=== PATIENT | male | born 1975 | race African-American/Black ===

== ENCOUNTER 2021-10-06 06:13 | Emergency (ER) | payer SELFPAY ==
[~2021-10-06 06:13] MED LIST: AMOXICILLIN500 MG PO; BACTRIM DS TAB1 EACH PO; BACTROBAN OINT22 GM EXT; CELEBREX100 MG PO; PENVEE K 500 M500 MG PO
[2021-10-06 07:12] LABS: HEMOGLOBIN 16.1 gm/dl (14.0-17.5); RED BLOOD COUNT 5.17 M/UL (4.20-5.50); WHITE BLOOD COUNT 9.3 K/UL (4.5-11.0)
[2021-10-06 07:36] LABS: BUN/CREATININE RATIO 12 (0-10)
[2021-10-06] MEDS ORDERED: BENZONATATE100 MG PO (10:24)
[2021-10-06] MEDS ORDERED: PROVENTIL HFA6.7 GM INH (10:24)
[2021-10-06] MEDS ORDERED: MEDROL DOSEPAK 24 MG PO (10:24)
== END 2021-10-06 10:34 | disposition home or self-care (01) ==
LOC: ER1 06:13
PROVIDERS: Physician Assistant
DX: J40 Bronchitis, not specified as acute or chronic (principal); J06.9 Acute upper respiratory infection, unspecified; F17.200 Nicotine dependence, unspecified, uncomplicated; Z20.822 Contact with and (suspected) exposure to COVID-19
CPT/HCPCS: 0240U; 36600; 80053; 82550; 82553; 82803; 83874; 84484; 85025; 93005; 96374; 99285; J2930; Q9967